=== PATIENT | male | born 1955 ===

== ENCOUNTER 2020-10-22 08:48 | Outpatient (CLI) | payer OTHER | END 2020-10-22 08:53 | disposition home or self-care (01) | LOC: RAD 08:48 | PROVIDERS: ATTEND Internal Medicine Pulmonary Disease | DX: J30.1 Allergic rhinitis due to pollen (principal); G47.33 Obstructive sleep apnea (adult) (pediatric); J45.41 Moderate persistent asthma with (acute) exacerbation; J45.51 Severe persistent asthma with (acute) exacerbation ==

== ENCOUNTER 2020-10-30 15:29 | Emergency (ER) | payer OTHER ==
[~2020-10-30] VITALS: Ht 170.2 cm; Wt 99.8 kg
[2020-10-30] MEDS ORDERED: NALTREXONE HCL50 MG (15:41)
== END 2020-10-30 22:20 | disposition home or self-care (01) ==
LOC: ER 15:29
DX: R07.89 Other chest pain (principal)

== ENCOUNTER 2020-11-27 07:46 | Outpatient (CLI) | payer OTHER ==
[~2020-11-27 07:46] MED LIST: NALTREXONE HCL50 MG
== END 2020-11-27 08:01 | disposition home or self-care (01) ==
LOC: SONOGRAMA 07:46
PROVIDERS: ATTEND Specialist
DX: R10.84 Generalized abdominal pain (principal); K75.81 Nonalcoholic steatohepatitis (NASH)

== ENCOUNTER 2021-02-05 13:19 | Outpatient (CLI) | payer OTHER | END 2021-02-05 13:34 | disposition home or self-care (01) | LOC: NUCLEAR 13:19 | PROVIDERS: ATTEND Specialist | DX: K75.81 Nonalcoholic steatohepatitis (NASH) (principal) | CPT/HCPCS: 78215; A9541 ==